=== PATIENT | male | born 1990 | race Hispanic/Latino ===

== ENCOUNTER 2024-10-05 08:26 | Emergency (ER) | payer OTHER ==
[~2024-10-05] VITALS: Ht 167.6 cm; Wt 95.3 kg
[2024-10-05 08:30] VITALS: PULSE 89; RESP 17; TEMP 98; O2SAT 100
[2024-10-05] MEDS ORDERED: CYCLOBENZAPRINE10 MG PO (08:54)
== END 2024-10-05 09:11 | disposition home or self-care (01) ==
LOC: ER 08:47
DX: J30.9 Allergic rhinitis, unspecified (principal); M62.838 Other muscle spasm; F41.9 Anxiety disorder, unspecified
CPT/HCPCS: 99282